=== PATIENT | male | born 2000 | race Two or more races ===

== ENCOUNTER 2021-08-20 22:41 | Emergency (ER) | payer OTHER ==
[~2021-08-20] VITALS: Ht 180.3 cm; Wt 63.0 kg
--- NOTE | 2021-08-20 22:45 | NUR ---
PT BIBR 878 FROM HOME C/O N/V X1HR. 1ST TIME EATING OYSTERS. TOLERATING R/A AT 98%. CONNECTED PT TO POX AND MONITOR
[2021-08-20] MEDS ORDERED: ONDANSETRON HCL/PF 4 MG/2 ML VIAL ONE (22:54)
--- NOTE | 2021-08-20 22:55 | NUR ---
PT SEEN BY LAW CARSON
[2021-08-20] MEDS ORDERED: ONDANSETRON HCL/PF - ER 4 MG/2 ML VIAL IM ONE (23:00)
--- NOTE | 2021-08-20 23:08 | NUR ---
4MG ZOFRAN GIVEN IVP PER MD LAW ORDERS.
[2021-08-20] MEDS ORDERED: IV NS 0.9% 1,000 ML IV ONE (23:30)
--- NOTE | 2021-08-20 23:34 | NUR ---
RAC #20G S/L; PATENT AND INTACT. IVF NS 1000ML INFUSING ORDERED
[2021-08-20] MEDS ORDERED: ONDA4TAB11 PO (23:44)
[2021-08-21] MEDS ORDERED: METOCLOPRAMIDE HCL 10 MG/2 ML VIAL IV ONE
[2021-08-21] MEDS ORDERED: METOCLOPRAMIDE HCL 10 MG/2 ML VIAL ONE (00:04)
[2021-08-21] MEDS ORDERED: HALOPERIDOL LACTATE INJ 5 MG/ML VIAL IV ONE (01:00)
[2021-08-21] MEDS ORDERED: HALOPERIDOL LACTATE INJ 5 MG/ML VIAL ONE (01:01)
--- NOTE | 2021-08-21 01:42 | NUR ---
Written and verbal after care instructions given. Patient verbalizes understanding of instruction. signed dc paper work. Called [facility] for pt to be picked up
[2021-08-21 02:06] VITALS: BP 119/72
--- NOTE | 2021-08-21 02:06 | NUR ---
Patient discharged to home in stable condition. Written and verbal after care instructions given. Patient verbalizes understanding of instruction. IV removed. Catheter intact and site benign. Pressure and 4x4 applied to site. No bleeding noted. PT ambulatory with a steady gait. FATHER PICKED UP PT
== END 2021-08-21 02:07 | disposition home or self-care (01) ==
LOC: ER 22:43
DX: A05.9 Bacterial foodborne intoxication, unspecified (principal); R11.2 Nausea with vomiting, unspecified; J45.909 Unspecified asthma, uncomplicated
CPT/HCPCS: 96361; 96374; 96375; 99284; J1630; J2405 ×2; J2765